=== PATIENT | male | born 1980 | race Caucasian/White ===

== ENCOUNTER 2018-06-26 11:41 | Emergency (ER) | payer OTHER ==
[~2018-06-26] VITALS: Ht 175.3 cm; Wt 131.1 kg
[~2018-06-26 11:41] MED LIST: ACETAMINOPHEN-1 EAC1 PO; FLEXERIL PO; IBUPROFEN 800800 M1 PO; PROAIR HFA8.5 GM INH
[2018-06-26] MEDS ORDERED: COZAAR 25 MG TA25 M1 PO (11:59)
[2018-06-26 13:12] VITALS: BP 163/107
== END 2018-06-26 13:12 | disposition home or self-care (01) ==
LOC: M.ERS 11:41
DX: S83.8X1A Sprain of other specified parts of right knee, initial encounter (principal); I10 Essential (primary) hypertension; F17.210 Nicotine dependence, cigarettes, uncomplicated; Z88.0 Allergy status to penicillin; W00.0XXA Fall on same level due to ice and snow, initial encounter; Y93.89 Activity, other specified; Y92.89 Other specified places as the place of occurrence of the external cause; Y99.8 Other external cause status

== ENCOUNTER 2019-09-25 15:47 | Emergency (ER) | payer OTHER ==
[~2019-09-25] VITALS: Ht 175.3 cm; Wt 129.3 kg
[~2019-09-25 15:47] MED LIST changes: +COZAAR 25 MG TA25 M1 PO
[2019-09-25 16:22] LABS: INFLUENZA A ANTIGEN Negative (Negative); INFLUENZA B ANTIGEN Negative (Negative)
[2019-09-25 16:27] LABS: HEMOGLOBIN 18.5 gm/dL (14.0-18.0); MCV 94.1 fL (80.0-100.0); NUCLEATED RBCS 0 /100WBC
[2019-09-25 16:36] LABS: CALCIUM 8.5 mg/dL (8.5-10.1); POTASSIUM 3.4 mmol/L (3.5-5.1)
[2019-09-25 16:40] LABS: ABSOLUTE EOSINOPHILS 0.2 thou/uL (0.0-0.7); ABSOLUTE LYMPHOCYTES 1.9 thou/uL (0.8-5.3); ABSOLUTE NEUTROPHILS 3.9 thou/uL (1.6-8.1); BASOPHILS 0.7 %; EOSINOPHILS 3.2 %; LYMPHOCYTES 26.3 %; MCH 34.1 pg (26.0-34.0); MCHC 36.2 g/dL (28.0-37.0); MONOCYTES 13.9 %; MPV 8.1 fl. (7.2-11.1); PLATELET COUNT* 170 thou/uL (150-400); POLYS 55.9 %; RBC 5.42 mil/uL (4.50-6.00); RDW-CV 12.5 % (10.5-14.5); WBC 7.1 thou/uL (4.0-11.0)
[2019-09-25 16:41] LABS: ALBUMIN 3.5 g/dL (3.4-5.0); TOTAL BILIRUBIN 1.1 mg/dL (<0.1-1.0); TOTAL PROTEIN 7.8 g/dL (6.4-8.2)
[2019-09-25 19:19] VITALS: BP 136/86
--- NOTE | 2019-09-26 09:18 | EKG ---
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1980 Requested By: Karlo Weathers Order Number: [id number] MD: Gael Jacob Measurements Intervals [place] Rate: 65 P: 8 CT: 157 QRS: -51 QRSD: 100 T: 32 QT: 417 QTc: 434 Interpretive Statements Sinus rhythm Left anterior fascicular block Abnormal R-wave progression, late transition Borderline T abnormalities, lateral leads Baseline wander in lead(s) III,aVF Compared to ECG 09/12/2014 12:05:36 T-wave abnormality now present Electronically Signed On 09-26-2019 9:17:36 PARENT TRAINER by Gael Jacob [email or web address] <ELECTRONICALLY SIGNED> By: Gael Jacob MD, FACC 09/26/19 0917 1600 1600 Gael Jacob MD, FACC /EPI
== END 2019-09-25 19:20 | disposition home or self-care (01) ==
LOC: M.ERS 15:47
PROVIDERS: Physician Assistant
DX: E87.6 Hypokalemia (principal); J06.9 Acute upper respiratory infection, unspecified; I10 Essential (primary) hypertension; R94.5 Abnormal results of liver function studies; Z88.0 Allergy status to penicillin

== ENCOUNTER 2021-09-25 16:33 | Emergency (ER) | payer OTHER ==
[~2021-09-25] VITALS: Ht 172.7 cm; Wt 136.1 kg
[2021-09-25] MEDS ORDERED: NEURONTIN100 MG PO (16:44)
[2021-09-25] MEDS ORDERED: ATENOLOL 100MG100 MG PO (16:45)
[2021-09-25 17:06] LABS: ABSOLUTE BASOPHILS 0.1 thou/uL (0.0-0.2); ABSOLUTE EOSINOPHILS 0.3 thou/uL (0.0-0.7); ABSOLUTE LYMPHOCYTES 2.4 thou/uL (0.8-5.3); ABSOLUTE NEUTROPHILS 7.3 thou/uL (1.6-8.1); BASOPHILS 0.7 %; EOSINOPHILS 2.5 %; HEMATOCRIT 52.3 % (42.0-52.0); HEMOGLOBIN 18.4 gm/dL (14.0-18.0); LYMPHOCYTES 21.7 %; MCH 35.8 pg (26.0-34.0); MCHC 35.2 g/dL (28.0-37.0); MCV 101.6 fL (80.0-100.0); MONOCYTES 8.7 %; MPV 7.7 fl. (7.2-11.1); NUCLEATED RBCS 0 /100WBC; PLATELET COUNT* 209 thou/uL (150-400); POLYS 66.4 %; RBC 5.15 mil/uL (4.50-6.00); RDW-CV 13.3 % (10.5-14.5); WBC 10.9 thou/uL (4.0-11.0)
[2021-09-25 17:14] LABS: CALCIUM 8.8 mg/dL (8.5-10.1); CREATININE 1.1 mg/dL (0.6-1.3); POTASSIUM 3.4 mmol/L (3.5-5.1)
[2021-09-25 17:19] LABS: ALBUMIN 3.5 g/dL (3.4-5.0); TOTAL PROTEIN 8.2 g/dL (6.4-8.2)
[2021-09-25] MEDS ORDERED: FLEXERIL PO (19:19)
[2021-09-25] MEDS ORDERED: MEDROLDOSEPACK PO (19:19)
[2021-09-25 19:25] VITALS: BP 140/92
--- NOTE | 2021-09-26 11:24 | EKG ---
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1980 Requested By: Karlo Weathers Order Number: [id number] MD: Gael Jacob Measurements Intervals [place] Rate: 76 P: -5 [place]: 147 QRS: -52 QRSD: 97 T: 25 QT: 439 QTc: 494 Interpretive Statements Sinus rhythm Left anterior fascicular block Abnormal R-wave progression, late transition Borderline prolonged QT interval Baseline wander in lead(s) V5 Compared to ECG 09/25/2019 16:00:49 T-wave abnormality no longer present Electronically Signed On 09-26-2021 11:23:47 CONTINUOUS PILLOWCASE CUTTER by Gael Jacob [email or web address] <ELECTRONICALLY SIGNED> By: Gael Jacob MD, FACC 09/26/21 1123 1739 1739 Gael Jacob MD, FAC /EPI
== END 2021-09-25 19:25 | disposition home or self-care (01) ==
LOC: M.ERS 16:33
PROVIDERS: Physician Assistant
DX: M79.622 Pain in left upper arm (principal); M54.50 Low back pain, unspecified; I10 Essential (primary) hypertension; F17.210 Nicotine dependence, cigarettes, uncomplicated; F12.90 Cannabis use, unspecified, uncomplicated; Z79.899 Other long term (current) drug therapy; Z88.0 Allergy status to penicillin